=== PATIENT | male | born 1970 | race Hispanic/Latino ===

== ENCOUNTER 2016-12-10 22:03 | Emergency (ER) | payer SELFPAY ==
[~2016-12-10] VITALS: Ht 157.5 cm; Wt 78.2 kg
[2016-12-10 22:58] LABS: HEMATOCRIT 39.8 % (38.0-50.0); MCH 31.1 PG (29.0-34.0); MCHC 35.7 G/DL (30.0-36.0); MCV 87.1 FL (86-99); MEAN PLAT.VOLUME 10.6 uM^3 (9.0-12.4); PLATELET COUNT 231 K/uL (156-360); RBC DIS.WIDTH-CV 12.5 % (11.8-14.6); RBC DIS.WIDTH-SD 38.8 % (39-53); RED BLOOD COUNT 4.57 M/uL (4.00-5.50); WHITE BLOOD COUNT 7.8 K/uL (4.1-10.2)
[2016-12-10 23:06] LABS: EOSINOPHIL (%) 10.1 % (0-5); EOSINOPHIL COUNT 0.8 K/uL (0-0.3); LYMPHOCYTE COUNT 3.7 K/uL (1.0-2.8); MONOCYTE (%) 5.5 % (3-12); MONOCYTE COUNT 0.4 K/uL (0-0.8); NEUTROPHIL (%) 36.8 % (45-76); NEUTROPHIL COUNT 2.9 K/uL (1.8-6.4)
[2016-12-10 23:08] LABS: CHLORIDE 103 mEq/L (99-109); POTASSIUM 3.5 mEq/L (3.7-5.4); SODIUM 138 mEq/L (136-147)
[2016-12-10 23:10] LABS: GLUCOSE 149 mg/dL (70-99)
[2016-12-10 23:11] LABS: ANION GAP 12 MEQ/L (2-14)
[2016-12-10 23:12] LABS: TOTAL BILIRUBIN 0.5 mg/dL (0.0-1.0)
[2016-12-10 23:13] LABS: ALKALINE PHOSPHATASE 74 IU/L (3-129)
[2016-12-10 23:14] LABS: GFR ESTIMATE (CALCULATED) > 59 mL/min/
[2016-12-10 23:15] LABS: UREA NITROGEN (BUN) 22 mg/dL (9-23)
[2016-12-10 23:17] LABS: LIPASE 30 U/L (1.0-51.0)
[2016-12-11 00:35] LABS: ADD MIUA? NO; BILIRUBIN NEGATIVE; BLOOD NEGATIVE; COLOR COLORLESS ((YELLOW)); GLUCOSE (STRIP) NEGATIVE; KETONES NEGATIVE; LEUKOCYTES NEGATIVE; NITRITE NEGATIVE; PROTEIN (STRIP) NEGATIVE; SPECIFIC GRAVITY 1.023 (1.000-1.030); UCUL ADDED? NO; UROBILINOGEN 0.2 MG/DL (0.2-1.0)
[2016-12-11] MEDS ORDERED: ANUSOL HC,ANUCO25 MG PR (01:17)
[2016-12-11] MEDS ORDERED: ULTRACET1 TABLET PO (01:17)
[2016-12-11 01:48] VITALS: BP 157/92
== END 2016-12-11 01:51 | disposition home or self-care (01) ==
LOC: EME 22:03
PROVIDERS: Physician Assistant
DX: R10.2 Pelvic and perineal pain (principal); K59.00 Constipation, unspecified; N50.812 Left testicular pain; K64.4 Residual hemorrhoidal skin tags; R73.9 Hyperglycemia, unspecified; R03.0 Elevated blood-pressure reading, without diagnosis of hypertension
CPT/HCPCS: 74177; 76870; 80053; 81003; 83690; 85025; 85027; 99281; 99285; J1885; J7030